=== PATIENT | female | born 1965 | race Caucasian/White ===

== ENCOUNTER 2023-08-19 13:52 | Emergency (ER) | payer OTHER, SELFPAY ==
[2023-08-19 13:59] VITALS: BP 188/94; PULSE 128; RESP 18; TEMP 36.8; O2SAT 99; BMI 30.8
--- NOTE | 2023-08-19 15:16 | CRLHL7_ITS ---
For Patients: As a result of the Century Cures Act, medical imaging exams and procedure reports are released immediately into your electronic medical record. You may view this report before your referring provider. If you have questions, please contact your health care provider. INDICATION: Left peritonsillar abscess TECHNIQUE: CT of the neck with 91 ml Isovue 370 contrast agent. Coronal and sagittal reconstructions are included. COMPARISON: None available FINDINGS: Asymmetric edematous enlargement of the left palatine tonsil, with ill-defined heterogeneous low attenuation collection with internal septations compatible with phlegmon and/or potentially developing abscess. This collection is difficult to discretely measure given indistinct margins and dental amalgam artifact, but a dominant superolateral crescentic component measures approximately 18 x 8 x 10 mm AP/TR/CC, with an adjacent inferomedial component measuring 10 x 17 x 8 mm AP/TR/CC. Mild oropharyngeal airway narrowing. Reactive cervical lymphadenopathy, with bilateral level 2 nodes measuring up to 1.5 cm short axis. Parotid, submandibular, and thyroid glands are unremarkable. Major cervical vasculature demonstrates expected contrast opacification. Clear paranasal sinuses and mastoid air cells. Orbits and included intracranial structures are unremarkable for technique. Lung apices are clear. IMPRESSION: 1. Left palatine tonsillitis, containing ill-defined heterogeneous low-attenuation collections as measured, compatible with phlegmon and/or developing abscess. 2. Mild oropharyngeal airway narrowing. 3. Reactive cervical lymphadenopathy. Please note that all CT scans at this facility use dose modulation, iterative reconstruction, and/or weight-based dosing when appropriate to reduce radiation dose to as low as reasonably achievable. Dictated by Mirela Stacy MD @ 08/19/2023 4:49:32 PM (Electronically Signed)
--- NOTE | 2023-08-19 15:35 | ED_ITS ---
HPI - General Adult General Date Seen: 08/19/23 Chief complaint: Ear/Nose/Throat Problem Stated complaint: Abscess on tonsils Time Seen by Provider: 08/19/23 15:10 Source: patient, RN notes reviewed and old records reviewed Mode of arrival: ambulatory Limitations: no limitations History of Present Illness HPI narrative: Patient is a 58-year-old woman, generally healthy. She has had a sore throat for week or so, was seen on Wednesday and started on amoxicillin. She has taken a total of 5 doses but feels that things are getting somewhat worse. She did have a lot of pain on the right, that has resolved but now she has a lot of pain on the left, she cannot open her jaw completely, had difficulty brushing her teeth last night because she could not get the tooth depression. She has not had fevers, she is able to swallow liquids and she has been able to drink yogurt and applesauce, but she says when she tries to swallow pills with water the water comes out through her nose. No difficulty breathing. Related Data Previous Rx's Medication Instructions Recorded clindamycin HCl 300 mg capsule 300 mg PO QID #28 caps 08/19/23 Allergies Allergy/AdvReac Type Severity Reaction Status Date / Time No Known Drug Allergies Allergy Verified 08/19/23 14:02 Review of Systems Status of ROS: Reports: 10 or more systems reviewed and unremarkable except as noted in History and below Exam Narrative: Exam Narrative: Vital signs as noted above. In general, an alert, nontoxic woman, voice altered. Head: Normocephalic, atraumatic. Eyes: Pupils are equal reactive. Extraocular movements are full. Conjunctivae are normal. ENT: Mucous membranes are moist. Trismus. Palatal and peritonsillar edema on the left, the tonsil itself is erythematous and I suspect there is an area of draining, there seems to be a focal area of purulence. Neck: Supple without lymphadenopathy. Heart: Regular rate and rhythm. No murmur or rub. Lungs: Clear bilaterally. No increased work of breathing, crackles or wheezes. Abdomen: Soft and nontender. No organomegaly. Extremities: Well perfused. No edema. No calf tenderness. Pulses intact. Neurologic: Patient is alert and oriented to person and place. Speech is fluent. Face is symmetric. Moves all extremities equally. Affect: Normal. Skin: Warm and dry. Well perfused. Const: Vital Signs, click to edit/add: Vital Signs - 24 hr 08/19/23 13:59 08/19/23 17:30 Temperature 98.2 F Pulse Rate [Right Pulse Oximeter] 128 H 104 H Respiratory Rate 18 Blood Pressure [Ri ght Upper Arm] 188/94 H Pulse Oximetry 99 96 Oxygen Delivery Me thod Room Air Room Air Documenting provider has reviewed patient's vital signs: yes Course Course ED Course: Plan will be to place an IV here, will give her some IV fluids. CT to evaluate for size of abscess on the left. No airway concerns at this time. Will consult ENT on completion of CT scan. CT by my review showed a little bit of loculated fluid in the tonsil on the left, no large fluid collection. I reviewed this CT read with Dr. Neville, as follows:FINDINGS: Asymmetric edematous enlargement of the left palatine tonsil, with ill-defined heterogeneous low attenuation collection with internal septations compatible with phlegmon and/or potentially developing abscess. This collection is difficult to discretely measure given indistinct margins and dental amalgam artifact, but a dominant superolateral crescentic component measures approximately 18 x 8 x 10 mm AP/TR/CC, with an adjacent inferomedial component measuring 10 x 17 x 8 mm AP/TR/CC. Mild oropharyngeal airway narrowing. Reactive cervical lymphadenopathy, with bilateral level 2 nodes measuring up to 1.5 cm short axis. Parotid, submandibular, and thyroid glands are unremarkable. Major cervical vasculature demonstrates expected contrast opacification. Clear paranasal sinuses and mastoid air cells. Orbits and included intracranial structures are unremarkable for technique. Lung apices are clear. IMPRESSION: 1. Left palatine tonsillitis, containing ill-defined heterogeneous low-attenuation collections as measured, compatible with phlegmon and/or developing abscess. 2. Mild oropharyngeal airway narrowing. 3. Reactive cervical lymphadenopathy. He recommended discharge home with clindamycin, discontinue amoxicillin. Return at any time for worsening. I have reviewed all this with the patient. Her labs are fairly reassuring, white blood cell count is 11.8, 80% neutrophils, metabolic panel is normal, lactate is 1.2. She feels that her swallowing is improving. She had some Tylenol here. Declined a need for anything else for pain. Will discharge home, I gave her an IV dose of clindamycin and ordered 300 mg q.i.d.. Return as outlined above. Vital Signs Vital signs: Initial Vital Signs Temperature 98.2 F 08/19/23 13:59 Temperature Source Temporal Artery Scan 08/19/23 13:59 Pulse Rate 128 H 08/19/23 13:59 Pulse Rhythm Regular 08/19/23 13:59 Pulse Strength 3+ Normal 08/19/23 13:59 Respiratory Rate 18 08/19/23 13:59 Blood Pressure 188/94 H 08/19/23 13:59 Blood Pressure Mean 125 H 08/19/23 13:59 Blood Pressure Position Sitting 08/19/23 13:59 Pulse Oximetry 99 08/19/23 13:59 Oxygen Delivery Method Room Air 08/19/23 13:59 Vital Signs Temperature 98.2 F 08/19/23 13:59 Pulse Rate 128 H 08/19/23 13:59 Respiratory Rate 18 08/19/23 13:59 Blood Pressure 188/94 H 08/19/23 13:59 Pulse Oximetry 99 08/19/23 13:59 Oxygen Delivery Method Room Air 08/19/23 13:59 Temperature 98.2 F 08/19/23 13:59 Pulse Rate 104 H 08/19/23 17:30 Respiratory Rate 18 08/19/23 13:59 Blood Pressure 188/94 H 08/19/23 13:59 Pulse Oximetry 96 08/19/23 17:30 Oxygen Delivery Method Room Air 08/19/23 17:30 Medications Administered Medications: Discontinued Medications Generic Name Dose Route Start Last Admin Trade Name Freq PRN Reason Stop Dose Admin Acetaminophen 1,000 mg 08/19/23 16:53 08/19/23 17:01 Acetaminophen 500 Mg Tablet PO 08/19/23 16:54 1,000 mg ONCE ONE Administration Sodium Chloride 1,000 mls @ 1,000 mls/hr 08/19/23 15:30 08/19/23 16:50 0.9 % Sodium Chloride 1000 Ml IV 08/19/23 16:29 Infused .Q1H JIA Infusion Clindamycin Phosphate 600 mg in 50 mls @ 100 mls/hr 08/19/23 16:41 08/19/23 17:25 Clindamycin 600 Mg/50 [id number] IVPB 08/19/23 17:10 Infused ONCE ONE Infusion Morphine Sulfate 4 mg 08/19/23 15:21 08/19/23 16:13 Morphine 4 Mg/Ml Inj IVP 08/19/23 15:22 Not Given ONCE ONE Medical Decision Making Lab Data Labs: Lab Results 08/19/23 Range/Units 15:44 WBC 11.73 H (4.50-11.00) K/uL RBC 5.23 H (4.00-5.20) m/uL Hgb 14.1 (12.0-16.0) gm/dL Hct 44.3 (33.0-51.0) % MCV 85 (80-100) fL MCH 27 (26-34) pg MCHC 32 (32-36) gm/dL RDW Coeff of Jose 12.9 (11.5-15.5) % Plt Count 321 (140-440) K/uL Neut % (Auto) 79.6 H (42.0-72.0) % Lymph % (Auto) 13.0 L (20-44) % Bullock % (Auto) 5.2 (0.0-11.0) % Eos % (Auto) 1.1 (0.0-7.0) % Baso % (Auto) 0.2 (0.0-3.0) % Neut # (Auto) 9.30 H (1.7-7.0) K/uL Lymph # (Auto) 1.50 (0.90-2.90) K/uL Bullock # (Auto) 0.60 (0.00-0.90) K/UL Eos # (Auto) 0.10 (0.00-0.50) K/uL Baso # (Auto) 0.00 (0.00-0.30) K/uL Abs Immat Gran (auto) 0.10 (0.00-0.30) K/uL Imm/Tot Granulo (auto) 0.9 % Sodium 141 (135-149) mmol/L Potassium 4.1 (3.6-5.1) mmol/L Chloride 106 (96-114) mmol/L Carbon Dioxide 26 (20-32) mmol/L Anion Gap 9 (7-15) mEq/L BUN 11 (7-30) mg/dL Creatinine 0.5 (0.5-1.5) mg/dL Estimated Creat Clear 109.01 Estimated GFR 108 ml/min Glucose 119 H (60-115) mg/dL Lactate 1.2 (0.5-1.9) mmol/L Calcium 9.5 (8.4-10.6) mg/dL Discharge Plan Discharge Clinical Impression: Abscess of tonsil Patient Disposition: Home, Self-Care Condition: Improved Instructions: Peritonsillar Abscess (DC) Additional Instructions: Discontinue amoxicillin, clindamycin as prescribed. For worsening pain, swelling, difficulty swallowing or new symptoms such as fever, return to the emergency department. Prescriptions: New clindamycin HCl 300 mg capsule 300 mg PO QID Qty: 28 0RF Follow Up/Referrals: Gabriela Orosco MD [Primary Care Provider] - Stand Alone Forms: [employer] Info Instructions
[2023-08-19 15:52] LABS: Lactate Sepsis w/Reflex* 1.2 mmol/L (0.5-1.9)
[2023-08-19 15:54] LABS: Basophils Percent Auto 0.2 % (0.0-3.0); Eosinophils Percent Auto 1.1 % (0.0-7.0); Hematocrit 44.3 % (33.0-51.0); Hemoglobin* 14.1 gm/dL (12.0-16.0); Immature Granulocytes Pct Auto 0.9 %; Mean Corpuscular HGB Conc 32 gm/dL (32-36); Mean Corpuscular Hemoglobin 27 pg (26-34); Mean Corpuscular Volume 85 fL (80-100); Monocytes Percent Auto 5.2 % (0.0-11.0); Neutrophils Percent Auto 79.6 % (42.0-72.0); Platelet Count* 321 K/uL (140-440); RDW Coefficient of Variation % 12.9 % (11.5-15.5); Red Blood Count 5.23 m/uL (4.00-5.20); White Blood Count* 11.73 K/uL (4.50-11.00)
[2023-08-19 15:56] LABS: Slide Review Reflex No
[2023-08-19] MEDS: 0.9 % SODIUM CHLORIDE 1000 ml 1,000 ML IV (16:08)
[2023-08-19 16:19] LABS: Chloride* 106 mmol/L (96-114); Potassium* 4.1 mmol/L (3.6-5.1); Sodium* 141 mmol/L (135-149)
[2023-08-19 16:22] LABS: Anion Gap 9 mEq/L (7-15); Blood Urea Nitrogen* 11 mg/dL (7-30); Carbon Dioxide* 26 mmol/L (20-32); Creatinine* 0.5 mg/dL (0.5-1.5); Est. Creatinine Clearance* 109.01; Estimated Glomerular Filt Rate 108 ml/min; Glucose* 119 mg/dL (60-115)
[2023-08-19 16:23] LABS: Calcium* 9.5 mg/dL (8.4-10.6)
[2023-08-19] MEDS: CLINDAMYCIN 600 MG/50 ML-D5W 600 MG/50 ML PIGGYBACK 100 MG IVPB (16:54)
[2023-08-19] MEDS: ACETAMINOPHEN 500 MG TABLET 1000 MG PO (17:01)
[2023-08-19 17:30] VITALS: PULSE 104; O2SAT 96
[2023-08-20 00:12] LABS: Troponin I* < 0.01 ng/mL (0.01-0.04)
== END 2023-08-19 17:38 | disposition home or self-care (01) ==
PROVIDERS: Emergency Provider Emergency Medicine; PCP Family Medicine
DX: J36 Peritonsillar abscess (principal)
CPT/HCPCS: 36415; 70491; 80048; 83605; 84484; 85025; 96365; 96375; 99284; 99285; A9270; J0736; J2270; J7030; Q9967